=== PATIENT | female | born 1995 | race Caucasian/White ===

== ENCOUNTER 2017-04-02 12:14 | Emergency (ER) | payer OTHER ==
[~2017-04-02] VITALS: Ht 162.6 cm; Wt 53.0 kg
[~2017-04-02 12:14] MED LIST: ALBU6.7H INH; AMOX500T PO; LEVA1.2519 IN; MEDR4PAK3 PO; OMEP20TA OR; PRED10PA PO; ZITH250T PO
[2017-04-02 12:17] VITALS: BP 133/81; PULSE 131; RESP 20; TEMP 99.1; O2SAT 99
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
[2017-04-02] MEDS ORDERED: TYLE325T PO (13:48)
--- NOTE | 2017-04-02 14:36 | RADRPT ---
EXAM DATE/TIME: 04/02/2017 14:07 [place] COMPARISON: No previous studies available for comparison. INDICATIONS : Shortness of breath, cough, and bilateral chest pain. MEDICAL HISTORY : Asthma. SURGICAL HISTORY : None. ENCOUNTER: Initial ACUITY: 1 day PAIN SCORE: 6/10 LOCATION: Bilateral chest FINDINGS: A single view of the chest demonstrates the lungs to be symmetrically aerated without evidence of mas s, infiltrate or effusion. The cardiomediastinal contours are unremarkable. Osseous structures are intact. CONCLUSION: No acute disease. There is no evidence of pneumonia. Mohan Wade MD on April 02, 2017 at 14:33 Board Certified Radiologist. This report was verified electronically.
--- NOTE | 2017-04-02 15:06 | PD ---
HPI Chief Complaint: Chest Pain Time Seen by Provider: 13:49 Travel History International Travel<30 days: No Contact w/Intl Traveler<30days: No Traveled to known affect area: No History of Present Illness HPI Patient is a 21-year-old female adopted presents emergency department for evaluation of chest pain. She states she has a history of fibromyalgia as well as an unknown immune compromise. She states the pain is aching left side of her chest also associated with headache and bilateral lower extremity pain. States symptoms been going on for the past few days, went to an urgent care facility and were referred to the emergency department for further evaluation. She denies any nausea vomiting shortness of breath dizziness on exertion presyncopal symptoms. States the pain is severe, location and radiation as above, context as above. PFSH Past Medical History ?: Not LMP: 03/16/17 Social History Alcohol Use: No Tobacco Use: No Allergies-Medications (Allergen,Severity, Reaction): Coded Allergies: corn (Unverified Allergy, Severe, CONJESTION, 11/01/16) cefaclor (Unverified Allergy, Intermediate, DIARRHEA, 11/01/16) Reported Meds & Prescriptions Reported Meds & Active Scripts Active Reported Tylenol (Acetaminophen) 325 Mg Tab 325 Mg PO ONCE Review of Systems Except as stated in HPI: all other systems reviewed are Neg Physical Exam Narrative GENERAL: Well-developed thin female in no obvious distress. Comfortable in a stretcher. SKIN: Focused skin assessment warm/dry. HEAD: Atraumatic. Normocephalic. EYES: Pupils equal and round. No scleral icterus. No injection or drainage. ENT: No nasal bleeding or discharge. Mucous membranes pink and moist. NECK: Trachea midline. No JVD. CARDIOVASCULAR: Regular rate and rhythm. No murmur appreciated. RESPIRATORY: No accessory muscle use. Clear to auscultation. Breath sounds equal bilaterally. GASTROINTESTINAL: Abdomen soft, non-tender, nondistended. Hepatic and splenic margins not palpable. MUSCULOSKELETAL: No obvious deformities. No clubbing. No cyanosis. No edema. NEUROLOGICAL: Awake and alert. Cranial nerves II through XII grossly intact and nonfocal, 5 out of 5 strength in all 4 extremities. PSYCHIATRIC: Appropriate mood and affect; insight and judgment normal. Data Data Last Documented VS Vital Signs Date Time Temp Pulse Resp B/P (MAP) Pulse Ox O2 Delivery O2 Flow Rate FiO2 04/02/17 17:09 04/02/17 15:41 97 Nasal Cannula 2.00 04/02/17 13:48 18 04/02/17 12:17 99.1 131 Orders Orders Electrocardiogram (04/02/17 13:50) Chest, Single Ap (04/02/17 13:50) Basic Metabolic Panel (Bmp) (04/02/17 15:15) Complete Blood Count With Diff (04/02/17 15:15) D-Dimer (04/02/17 15:15) Troponin I (04/02/17 15:15) Ecg Monitoring (04/02/17 15:15) Iv Access Insert/Monitor (04/02/17 15:15) Oximetry (04/02/17 15:15) Oxygen Administration (04/02/17 15:15) Sodium Chloride 0.9% Flush (Ns Flush) (04/02/17 15:15) Diphenhydramine Inj (Benadryl Inj) (04/02/17 15:15) Prochlorperazine Inj (Compazine Inj) (04/02/17 15:15) Ed Discharge Order (04/02/17 16:33) Labs Laboratory Tests Test 04/02/17 15:36 White Blood Count 6.1 TH/MM3 Red Blood Count 4.15 MIL/MM3 Hemoglobin 13.0 GM/DL Hematocrit 37.6 % Mean Corpuscular Volume 90.6 FL Mean Corpuscular Hemoglobin 31.3 PG Mean Corpuscular Hemoglobin Concent 34.6 % Red Cell Distribution Width 13.1 % Platelet Count 181 TH/MM3 Mean Platelet Volume 8.8 FL Neutrophils (%) (Auto) 87.4 % Lymphocytes (%) (Auto) 5.5 % Monocytes (%) (Auto) 6.2 % Eosinophils (%) (Auto) 0.7 % Basophils (%) (Auto) 0.2 % Neutrophils # (Auto) 5.3 TH/MM3 Lymphocytes # (Auto) 0.3 TH/MM3 Monocytes # (Auto) 0.4 TH/MM3 Eosinophils # (Auto) 0.0 TH/MM3 Basophils # (Auto) 0.0 TH/MM3 CBC Comment DIFF FINAL Differential Comment D-Dimer Quantitative (PE/DVT) 0.38 MG/L FEU Blood Urea Nitrogen 7 MG/DL Creatinine 0.70 MG/DL Random Glucose 82 MG/DL Calcium Level 8.8 MG/DL Sodium Level 138 MEQ/L Potassium Level 3.6 MEQ/L Chloride Level 107 MEQ/L Carbon Dioxide Level 25.6 MEQ/L Anion Gap 5 MEQ/L Estimat Glomerular Filtration Rate 107 ML/MIN Troponin I LESS THAN 0.02 NG/ML MDM Medical Decision Making Medical Screen Exam Complete: Yes Emergency Medical Condition: Yes Differential Diagnosis Chest wall pain, ACS unlikely, [place] likely, pneumonia, pulmonary embolism seems unlikely. Narrative Course Patient roomed emerged permit, given Benadryl and Compazine for headache, initial workup including EKG and blood work negative, d-dimer negative. Patient 's mother is concerned because found out that the patient has a family history of heart disease as well as aneurysms in her head, at this time the patient is nonfocal, her headache is well-controlled, she has no thunderclap presentation therefore there is no indication for imaging at this time. This time the patient feeling better she stable for discharge follow-up the primary care physician. Diagnosis Primary Impression: Atypical chest pain Additional Impression: Headache Referrals: [facility] Disposition: 01 DISCHARGE HOME Condition: Stable [address]ad [address] MD Apr 02, 2017 15:06
[2017-04-02] MEDS ORDERED: diphenhydrAMINE HCL 50 MG/ML VIAL IV PUSH ONE (15:15)
[2017-04-02] MEDS ORDERED: SODIUM CHLORIDE 0.9% FLUSH 10 ML FLUSH IVF PRN (15:15)
[2017-04-02] MEDS ORDERED: PROCHLORPERAZINE INJ 10 MG/2 ML VIAL IM ONE (15:15)
[2017-04-02 15:41] VITALS: O2SAT 97
[2017-04-02 15:51] LABS: AUTOMATED NEUTROPHIL # 5.3 TH/MM3 (1.8-7.7); BASOPHIL % 0.2 % (0.0-2.0); EOSINOPHIL % 0.7 % (0.0-4.0); HEMATOCRIT 37.6 % (35.0-46.0); LYMPH % 5.5 % (9.0-44.0); LYMPHOCYTE # 0.3 TH/MM3 (1.0-4.8); MEAN CELL VOLUME 90.6 FL (80.0-100.0); MEAN CORPUSCULAR HEMOGLOBIN 31.3 PG (27.0-34.0); MEAN CORPUSCULAR HGB CONC 34.6 % (32.0-36.0); MEAN PLATELET VOLUME 8.8 FL (7.0-11.0); MONO % 6.2 % (0.0-8.0); MONOCYTE # 0.4 TH/MM3 (0-0.9); NEUT % 87.4 % (16.0-70.0); PLATELET COUNT 181 TH/MM3 (150-450); RED BLOOD COUNT 4.15 MIL/MM3 (4.00-5.30); RED CELL DISTRIBUTION WIDTH 13.1 % (11.6-17.2); WHITE BLOOD COUNT 6.1 TH/MM3 (4.0-11.0)
[2017-04-02 16:07] LABS: BICARBONATE 25.6 MEQ/L (21.0-32.0); BLOOD UREA NITROGEN 7 MG/DL (7-18); CALCIUM 8.8 MG/DL (8.5-10.1); CHLORIDE 107 MEQ/L (98-107); GLOMERULAR FILTRATION RATE 107 ML/MIN (>89); GLUCOSE,RANDOM 82 MG/DL (74-106); SODIUM (NA) 138 MEQ/L (136-145)
[2017-04-02 16:11] LABS: TROPONIN I LESS THAN 0.02 NG/ML (0.02-0.05)
--- NOTE | 2017-04-03 15:42 | EKG ---
Date Performed: 04/02/2017 Time Performed: 13:54:53 PTAGE: 21 years EKG: SINUS TACHYCARDIA ABNORMAL RHYTHM ECG NO PREVIOUS TRACING DOCTOR: Ray Sims Interpretating Date/Time 04/03/2017 15:41:52
== END 2017-04-02 17:10 | disposition home or self-care (01) ==
LOC: NEPD 12:14
DX: R07.89 Other chest pain (principal); R51 Headache; M79.7 Fibromyalgia; R00.0 Tachycardia, unspecified; R94.31 Abnormal electrocardiogram [ECG] [EKG]
CPT/HCPCS: 71045; 80048; 84484; 85025; 85379; 93005; 96372; 96374; 99285; J0780; J1200